=== PATIENT | male | born 1965 ===

== ENCOUNTER 2017-09-16 17:25 | Emergency (ER) | payer MEDICARE ==
[2017-09-16 17:36] VITALS: BP 141/93; PULSE 78; RESP 16; TEMP 97.6; O2SAT 99
--- NOTE | 2017-09-16 18:37 | ED PDOC ---
HPI: General Adult Time Seen by Provider: 09/16/17 17:53 Chief Complaint (Nursing): ENT Problem Chief Complaint (Provider): Left throat pain History Per: Patient History/Exam Limitations: no limitations Onset/Duration Of Symptoms: Days (x 1 week) Current Symptoms Are (Timing): Still Present Additional Complaint(s): 52 year old male presents to the ED complaining of 1 week history of foreign body sensation to left side of his throat. Denies any trauma to the area. Patient initially noticed it on a day where he had eaten toast with banana. Pain has been increasing since onset, and worsens with swallowing. Today he developed nausea and had more difficulty tolerating secretions. Otherwise he denies any associated fever, loss of voice, rhinorrhea, or cough. Patient also reports that it hurts to speak. PMD: Dr. Luis Littlejohn Past Medical History Reviewed: Historical Data, Nursing Documentation, Vital Signs Vital Signs: Last Vital Signs Temp 97.6 F 09/16/17 17:34 Pulse 78 09/16/17 17:34 Resp 16 09/16/17 17:34 BP 141/93 H 09/16/17 17:34 Pulse Ox 99 09/16/17 21:20 - Medical History PMH: Arthritis, HTN - Surgical History Other surgeries: Left knee surgery - Family History Family History: States: Hypertension - Social History Current smoker - smoking cessation education provided: No Alcohol: None - Immunization History Hx Tetanus Toxoid Vaccination: No Hx Influenza Vaccination: No Hx Pneumococcal Vaccination: No - Home Medications Home Medications: Ambulatory Orders Medication Instructions Recorded Albuterol HFA [Ventolin HFA 90 1 puff IH Q4 #1 puff 10/17/15 mcg/actuation (8 g)] Ibuprofen [Motrin] 1 tab PO TID PRN #30 tab 10/17/15 Spacer, Inhalation [Aerochamber] 1 inh IH QID #1 dev 10/17/15 predniSONE [Prednisone] 20 mg PO BID #10 tab 10/17/15 Azithromycin [Zithromax Z-Evin] 250 mg PO DAILY #1 packet 11/07/15 Promethazine DM [Phenergan DM Oral 5 ml PO Q6H PRN #100 dose 11/07/15 Syrup] Amoxicillin/Potassium Clav 2 tab PO BID #20 tablet 09/16/17 [Amox-Clav 250-125 mg Tablet] predniSONE [predniSONE Tab] 20 mg PO BID #8 tab 09/16/17 - Allergies Allergies/Adverse Reactions: Allergies Allergy/AdvReac Type Severity Reaction Status Date / Time No Known Allergies Allergy Verified 10/17/15 11:23 Review of Systems ROS Statement: Except As Marked, All Systems Reviewed And Found Negative (as per HPI otherwise negative) Constitutional: Positive for: Other (no loss of voice). Negative for: Fever, Chills ENT: Positive for: Throat Pain (left), Other (foreign body sensation to left side of throat, with pain on swallowing and difficulty tolerating secretions). Negative for: Nose Discharge Respiratory: Negative for: Cough Gastrointestinal: Positive for: Nausea Physical Exam - Reviewed Nursing Documentation Reviewed: Yes Vital Signs Reviewed: Yes - Laboratory Results Result Diagrams: 09/16/17 18:55 09/16/17 18:55 - ECG O2 Sat by Pulse Oximetry: 99 (RA) Pulse Ox Interpretation: Normal Medical Decision Making Medical Decision Making: Initial Impression: Left-sided throat pain Differential includes: foreign body, laryngitis, soft tissue abscess, or lymphadenitis. Time: 18:11 Initial Plan: * X-Ray of Neck Soft Tissue Time: 18:40 Soft Tissue Neck X-Ray is unremarkable, as viewed by me, with no obvious foreign body appreciated. CT scan and lab work ordered to assess for possible pharyngeal abscess. Patient Name: BEENA HUBER (Age): 1965 52 Gender: M Date of Exam: 09/16/2017 Referring Physician: Estephania Holley # of Images: [id number] Ordered As: CT NECK SOFT TISSUE W CONTRAST Page 1 of 2 EXAM: CT Neck With Intravenous Contrast EXAM DATE/TIME: 09/16/2017 6:40 PM CLINICAL HISTORY: 52 years old, male; Pain; Throat pain; Additional info: Left sided throat pain and dysphagia R/O abscess. Sent phy. Doc. TECHNIQUE: Axial computed tomography images of the neck with intravenous contrast. All CT scans at this facility use one or more dose reduction techniques, viz.: automated exposure control; ma/kV adjustment per patient size (including targeted exams where dose is matched to indication; i.e. head); or iterative reconstruction technique. Coronal and sagittal reformatted images were created and reviewed. CONTRAST: 80 mL of [id number] administered intravenously. COMPARISON: CR - NECK SOFT TISSUE 2017-09-16 18:27 FINDINGS: Brain: No acute abnormalities are seen in visualized portion of the brain. Sinuses: There is no acute sinusitis. There is mucoperiosteal thickening in the left maxillary sinus. Ears and mastoids: Middle ears and mastoids are unremarkable Orbits: Orbital contents are unremarkable. Tonsils and adenoids: Tonsils and adenoids are unremarkable. Deep facial spaces: Parapharyngeal spaces are symmetric. There are no facial masses. There is no retropharyngeal soft tissue swelling. Salivary glands: Parotid and submandibular glands are unremarkable. Airway: Airway is unremarkable Thyroid: Thyroid is unremarkable. Vascular: Vascular structures are unremarkable. Nodes: There is shotty cervical adenopathy Lung apices: Lung apices are clear. Bony structures: There are degenerative changes in the cervical spine. IMPRESSION: No abscess Thank you for allowing us to participate in the care of your patient. Dictated and Authenticated by: Irene Cárdenas MD 09/16/2017 9:11 PM Eastern Time ([place] & [place]) 21:35 Patient is medically stable for discharge home. Provided rx for antibiotic and prednisone. Counseling was provided and all questions were answered regarding diagnosis and need for follow up with ENT. There is agreement to discharge plan. Return if symptoms persist or worsen. Scribe Attestation: Documented by Leana Espinoza, acting as a scribe for Estephania Holley MD Provider Scribe Attestation: All medical record entries made by the Scribe were at my direction and personally dictated by me. I have reviewed the chart and agree that the record accurately reflects my personal performance of the history, physical exam, medical decision making, and the department course for this patient. I have also personally directed, reviewed, and agree with the discharge instructions and disposition. Disposition - Clinical Impression Clinical Impression: Throat pain - Patient ED Disposition Is Patient to be Admitted: No Counseled Patient/Family Regarding: Studies Performed, Diagnosis, Need For Followup - Disposition Referrals: Efren Greene MD [Staff Provider] - (LLAMA A LA OFICINA POR LA MANANA A HACER ABENA YANDY EN 2-3 DOVER A CHEQAR DE PAOLI) Disposition: Routine/Home Disposition Time: 21:35 Condition: STABLE Prescriptions: Amoxicillin/Potassium Clav [Amox-Clav 250-125 mg Tablet] 2 tab PO BID #20 tablet predniSONE [predniSONE Tab] 20 mg PO BID #8 tab Instructions: Pharyngitis (ED) Forms: [facility] (Divehi) Print Language: OCCITAN - POA Present On Arrival: None
[2017-09-16 19:00] LABS: BASO # 0.1 K/uL (0.0-0.2); EOS # 0.7 K/uL (0.0-0.7); EOS % 6.1 % (0.0-4.0); HEMOGLOBIN 14.7 g/dL (12.0-18.0); LYMPH # 3.9 K/uL (1.0-4.3); LYMPH % 32.4 % (20.0-40.0); MEAN CELL VOLUME 87.5 fl (80.0-94.0); MEAN CORPUSCULAR HEMOGLOBIN 29.6 pg (27.0-31.0); MEAN CORPUSCULAR HGB CONC 33.8 g/dL (33.0-37.0); MEAN PLATELET VOLUME 9.1 fl (7.2-11.7); MONO # 1.1 K/uL (0.0-0.8); MONO % 8.8 % (0.0-10.0); NEUT # 6.2 K/uL (1.8-7.0); NEUT % 51.7 % (50.0-75.0); NRBC % 0.2 % (0.0-0.0); RBC 4.96 Mil/uL (4.40-5.90); RED CELL DISTRIBUTION WIDTH 13.8 % (11.5-14.5)
[2017-09-16 19:13] LABS: ALB/GLOB RATIO 1.3 (1.0-2.1); ALBUMIN 4.6 g/dL (3.5-5.0); ALT/SGPT 93 U/L (21-72); AST/SGOT 42 U/L (17-59); BLOOD UREA NITROGEN 13 mg/dl (9-20); CALCIUM 9.8 mg/dL (8.4-10.2); GFR AFRICAN-AMERICAN > 60; GFR NON-AFRICAN AMERICAN > 60
[2017-09-16] MEDS ORDERED: Sodium Chloride 0.9% 50 ML IV ONE (19:57)
[2017-09-16] MEDS ORDERED: Iohexol 300 100 ML IJ ONE (19:57)
--- NOTE | 2017-09-16 21:11 | CT ---
EXAM: CT Neck With Intravenous Contrast EXAM DATE/TIME: 09/16/2017 6:40 PM CLINICAL HISTORY: 52 years old, male; Pain; Throat pain; Additional info: Left sided throat pain and dysphagia R/O abscess. Sent phy. Doc. TECHNIQUE: Axial computed tomography images of the neck with intravenous contrast. All CT scans at this facility use one or more dose reduction techniques, viz.: automated exposure control; ma/kV adjustment per patient size (including targeted exams where dose is matched to indication; i.e. head); or iterative reconstruction technique. Coronal and sagittal reformatted images were created and reviewed. CONTRAST: 80 mL of [id number] administered intravenously. COMPARISON: CR - NECK SOFT TISSUE 2017-09-16 18:27 FINDINGS: Brain: No acute abnormalities are seen in visualized portion of the brain. Sinuses: There is no acute sinusitis. There is mucoperiosteal thickening in the left maxillary sinus. Ears and mastoids: Middle ears and mastoids are unremarkable Orbits: Orbital contents are unremarkable. Tonsils and adenoids: Tonsils and adenoids are unremarkable. Deep facial spaces: Parapharyngeal spaces are symmetric. There are no facial masses. There is no retropharyngeal soft tissue swelling. Salivary glands: Parotid and submandibular glands are unremarkable. Airway: Airway is unremarkable Thyroid: Thyroid is unremarkable. Vascular: Vascular structures are unremarkable. Nodes: There is shotty cervical adenopathy Lung apices: Lung apices are clear. Bony structures: There are degenerative changes in the cervical spine. IMPRESSION: No abscess
--- NOTE | 2017-09-17 13:36 | RAD ---
PROCEDURE: Radiographs of the neck (soft tissue). HISTORY: LEFT sided foreign body sensation COMPARISON: None. TECHNIQUE: Frontal and Lateral Radiographs of the neck, optimized for soft tissue visualization. FINDINGS: SOFT TISSUES: Unremarkable. No radiopaque foreign body seen. CERVICAL SPINE: Grossly unremarkable. OTHER FINDINGS: None. IMPRESSION: Unremarkable radiographs of the soft tissues of the neck.
== END 2017-09-16 21:49 | disposition home or self-care (01) ==
LOC: H.ER 17:25
DX: R07.0 Pain in throat (principal); I10 Essential (primary) hypertension
CPT/HCPCS: 70360; 70491; 80053; 85025; 87040; 87070; 87430; 96374; 99284; J1100; Q9967

== ENCOUNTER 2017-12-17 06:08 | Inpatient (IN) | payer MEDICARE ==
[2017-12-12 13:23] VITALS: BMI 33.8
[2017-12-17 07:07] LABS: BASO # 0.1 K/uL (0.0-0.2); BASO % 0.8 % (0.0-2.0); EOS # 0.7 K/uL (0.0-0.7); EOS % 8.6 % (0.0-4.0); HEMOGLOBIN 14.8 g/dL (12.0-18.0); LYMPH # 3.1 K/uL (1.0-4.3); LYMPH % 37.3 % (20.0-40.0); MEAN CELL VOLUME 87.4 fl (80.0-94.0); MEAN CORPUSCULAR HEMOGLOBIN 29.9 pg (27.0-31.0); MEAN CORPUSCULAR HGB CONC 34.2 g/dL (33.0-37.0); MEAN PLATELET VOLUME 9.3 fl (7.2-11.7); MONO # 0.9 K/uL (0.0-0.8); MONO % 10.7 % (0.0-10.0); NEUT # 3.6 K/uL (1.8-7.0); NEUT % 42.6 % (50.0-75.0); RBC 4.97 Mil/uL (4.40-5.90); RED CELL DISTRIBUTION WIDTH 14.1 % (11.5-14.5); WHITE BLOOD COUNT 8.4 K/uL (4.8-10.8)
--- NOTE | 2017-12-17 07:13 | CP.PCM.CON ---
History of Present Illness - History of Present Illness History of Present Illness: Patient is a 52 y/o male with PMH of OA and HTN, who presents with complaints of lower back pain. 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 He describes a heavy glass frame falling onto him in 2007, causing neck and lower back pain. He notes that in 2010 the pain became progressive and sought treatment. Over the past few months, the pain has been more consistent and severe hindering his daily activities, especially sitting and standing. He has failed conservative management with PT and oral medications, as well as epidural injections. The pain is sharp and stabbing in quality and predominantly located at the left side. The pain radiates to the left lower extremity without numbness or tingling. He denies bowel/bladder dysfunction or saddle paresthesias. He aslo denies CP/SOB/N/V/D/fever/WILSON/ dysuria/melena. Review of Systems - Review of Systems All systems: reviewed and no additional remarkable complaints except Review of Systems: as per HPI Past Patient History - Past Medical History & Family History Past Medical History?: Yes Past Family History: Reviewed and not pertinent - Past Social History Smoking Status: Never Smoked Alcohol: None - CARDIAC Hx Cardiac Disorders: Yes Hx Hypertension: Yes - PULMONARY Hx Respiratory Disorders: No - NEUROLOGICAL Hx Neurological Disorder: No - HEENT Hx HEENT Problems: No Other/Comment: HX: VOCAL CORD LESION; DYSPHAGIA; HOARSNESS - RENAL Hx Chronic Kidney Disease: No - ENDOCRINE/METABOLIC Hx Endocrine Disorders: No - HEMATOLOGICAL/ONCOLOGICAL Hx Blood Disorders: No Hx Blood Transfusions: No - INTEGUMENTARY Hx Dermatological Problems: No - MUSCULOSKELETAL/RHEUMATOLOGICAL Hx Musculoskeletal Disorders: Yes Hx Arthritis: Yes (knees left) Hx Falls: No Other/Comment: HX: LEFT KNEE "TEAR" - GASTROINTESTINAL Hx Gastrointestinal Disorders: No Other/Comment: HX: DYSPHAGIA - GENITOURINARY/GYNECOLOGICAL Hx Genitourinary Disorders: No - PSYCHIATRIC Hx Emotional Abuse: No Hx Physical Abuse: No - SURGICAL HISTORY Hx Surgeries: Yes Hx Arthroscopy: Yes (left knee arthroscopy) Other/Comment: THROAT BX - ANESTHESIA Hx Anesthesia: Yes Hx Anesthesia Reactions: No Hx Malignant Hyperthermia: No Has any member of the family had a problem w/ anesthesia?: No Meds Allergies/Adverse Reactions: Allergies Allergy/AdvReac Type Severity Reaction Status Date / Time No Known Allergies Allergy Verified 12/17/17 07:12 Physical Exam - Constitutional Appears: No Acute Distress - Head Exam Head Exam: ATRAUMATIC, NORMOCEPHALIC - Eye Exam Eye Exam: EOMI, Normal appearance, PERRL - ENT Exam ENT Exam: Mucous Membranes Moist - Respiratory Exam Respiratory Exam: Clear to Auscultation Bilateral, NORMAL BREATHING PATTERN - Cardiovascular Exam Cardiovascular Exam: REGULAR RHYTHM - GI/Abdominal Exam GI & Abdominal Exam: Normal Bowel Sounds, Soft - Extremities Exam Additional comments: L knee swelling and tenderness - Back Exam Additional comments: Lumbar: midline tenderness, L paraspinal tenderness sensation intact SP/DP/TN motor intact EHL/FHl/TA/G distal pulses intact + L SLR neg babinski, neg homans - Neurological Exam Neurological exam: Alert, CN II-XII Intact, Oriented x3 - Psychiatric Exam Psychiatric exam: Normal Affect, Normal Mood - Skin Skin Exam: Normal Color, Warm Results - Vital Signs Recent Vital Signs: Last Vital Signs Temp 97.8 F 12/17/17 06:56 Pulse 87 12/17/17 07:04 Resp 18 12/17/17 06:56 BP 125/56 L 12/17/17 06:56 Pulse Ox 96 12/17/17 06:56 - Labs Result Diagrams: 12/17/17 06:45 Labs: Laboratory Results - last 24 hr 12/17/17 06:45 WBC 8.4 RBC 4.97 Hgb 14.8 Hct 43.4 MCV 87.4 MCH 29.9 MCHC 34.2 RDW 14.1 Plt Count 160 MPV 9.3 Neut % (Auto) 42.6 L Lymph % (Auto) 37.3 [place] % (Auto) 10.7 H Eos % (Auto) 8.6 H Baso % (Auto) 0.8 Neut # (Auto) 3.6 Lymph # (Auto) 3.1 [place] # (Auto) 0.9 H Eos # (Auto) 0.7 Baso # (Auto) 0.1 Assessment & Plan (1) Herniated nucleus pulposus, lumbar Assessment and Plan: -Dr. Calderon proposes lumbar laminotomy and fusion at levels L2-4, possible L1-2 -Risks/benefits of the procedure were explained to the patient in detail. The patient understands and agrees to proceed -above d/w Dr. Calderon in agreement Status: Acute - Date & Time Date: 12/17/17 Time: 07:13 Radiology Interpretation - Venetian Blind Maker Venetian Blind Maker:: Radiologist - Study type Study type:: MRI - Body Region Body Region:: Back - Notes: Notes:: Accession No. : [id number] Patient Name / ID : MAYO Baer / [id number] Exam Date : 10/06/2017 08:47:44 ( Approved ) Study Comment : Sex / Age : M / 52Y Creator : Luis Antonio Maria MD Dictator : Luis Antonio Maria MD Rubber Stamp Dies Inspector : Liquid Chlorine Operator : Luis Antonio Maria MD Approver2 : Report Date : 10/06/2017 12:41:52 My Comment : PROCEDURE: MR LUMBAR SPINE WITHOUT CONTRAST HISTORY: LOWER BACK/NECK PAIN COMPARISON: None available. TECHNIQUE: Multiecho multiplanar sequences were performed through the lumbar spine without the use of intravenous contrast. FINDINGS: Lumbar curvature is mildly straightened. There is a minimal spondylolisthesis at L2-3 with L2 posterior to L3 by 3-4 mm. This appears to be on the basis of facet joint degenerative change rather than spondylolysis. Endplate degenerative signal changes seen surrounding the L3-4 and L5-S1 disc interspace is mildly. No suspicious small marrow signal changes appreciated throughout the lumbar spine. Diffuse disc desiccation is appreciated with mild disc height loss identified follow up from L1 down to upper endplate L5. The L5-S1 intervertebral disc space is normal in height. An annular tear is seen anterolaterally toward the left at L1-2. The L Conus medullaris appears normal in signal terminating at the L 1 inferior endplate with prevertebral and paraspinal soft tissues unremarkable. Incidental note is made of an apparent cyst at the left kidney history better characterized by ultrasound or CT. T12-L1: No disc herniation, spinal canal stenosis or neural foraminal narrowing. L1-2: No disc herniation, spinal canal stenosis or neural foraminal narrowing. Minimal disc bulge is appreciated generalized. L2-3: A generalized disc osteophyte complex is appreciated flattening the ventral thecal sac and combining with mild facet joint degenerative change resulting in mild central canal stenosis concentrated at the lateral recesses. Borderline bilateral neural foraminal stenosis. No disc herniation. L3-4: A large, generalized disc bulge is appreciated with a tiny left lateral disc protrusion stenosing left lateral recess. [id number]-[id number] central canal stenosis appreciated with mild bilateral facet arthropathy contributing to this appearance. Mild, degenerative bilateral neural foraminal stenosis is identified. L4-5: An irregular right paracentral disc protrusion is appreciated with a lateralized component and a generalized moderate disc bulge combined with facet joint arthropathy resulting in a mild central canal stenosis. The right lateral recess is obliterated. Moderate degenerative neural foraminal stenosis appreciated bilaterally. L5-S1: A central disc protrusion is appreciated without distorting the ventral thecal sac. Facet degenerative change appears moderate with minimal generalized disc bulging appreciated. A borderline central canal and bilateral neural foraminal stenoses are appreciated. OTHER FINDINGS: None. IMPRESSION: 1. [id number] central canal stenosis identified L3-4 due to a large generalized disc bulge, facet joint arthropathy and a tiny left lateral disc protrusion stenosing left lateral recess in particular. 2. Mild L4-5 predominantly degenerative central canal stenosis with a limited component from a small right paracentral disc protrusion obliterating right lateral recess. 3. Borderline degenerative central canal stenosis at L5-S1 with a small central disc protrusion. 4. Variable limited bilateral neural foraminal stenoses appear degenerative.
[2017-12-17] MEDS ORDERED: Lidocaine 2% Inj (20ml) ONE (07:27)
[2017-12-17] MEDS ORDERED: Thrombin Topical 5,000 Int Units Spray Kit ONE ×2 (07:28→08:55)
[2017-12-17] MEDS ORDERED: Absorbable Gelatin Sponge Size 100 ONE (07:28)
[2017-12-17] MEDS ORDERED: Bacitracin Ointment 30 GM TUBE ONE (07:28)
[2017-12-17] MEDS ORDERED: Succinylcholine 200 mg/10 ml Inj IV ONE (07:34)
[2017-12-17] MEDS ORDERED: Propofol 10 mg/ml Inj (20 ML) ONE (07:34)
[2017-12-17] MEDS ORDERED: Rocuronium 10 mg/ml (5 ml) ONE ×2 (07:34→08:02)
[2017-12-17] MEDS ORDERED: Midazolam 2 MG/2 ML VIAL ONE (07:34)
[2017-12-17] MEDS ORDERED: Lidocaine 4% (Laryng-O-Jet) Kit MM ONE (07:34)
[2017-12-17] MEDS ORDERED: Phenylephrine 10 mg/ml Inj ONE (07:39)
[2017-12-17] MEDS ORDERED: ePHEDrine 50 mg/ml Inj ONE (07:39)
[2017-12-17] MEDS ORDERED: Lactated Ringer's 1,000 ML IV ONE ×2 (07:45→09:30)
[2017-12-17] MEDS ORDERED: Lidocaine 2% PF (10 ml) Amp INJ ONE (08:00)
[2017-12-17] MEDS ORDERED: HEMOSTATIC MATRIX 10 ML DIS.NEEDLE TOP ONE ×2 (08:20)
[2017-12-17] MEDS ORDERED: Neostigmine 1:1000 (1 mg/ml) Inj ONE (09:02)
[2017-12-17] MEDS ORDERED: Absorbable Gelatin Sponge Size 100 TP ONE (09:05)
[2017-12-17] MEDS ORDERED: Thrombin Topical 5,000 Int Units Spray Kit TOP ONE (09:05)
[2017-12-17] MEDS ORDERED: Bupivacaine HCl 0.25% PF (30 ml) Inj ONE (09:25)
[2017-12-17] MEDS ORDERED: Bupivacaine HCl 0.25% PF (30 ml) Inj IJ ONE ×2 (09:35→09:41)
[2017-12-17] MEDS ORDERED: Morphine 4 MG/ML VIAL IVP PRN (09:59)
[2017-12-17] MEDS ORDERED: HYDROmorphone 0.5 mg/0.5 ml ISec IVP PRN (10:10)
--- NOTE | 2017-12-17 10:11 | PCM.SURG1 ---
Surgeon's Initial Post Op Note - Surgeon's Notes Surgeon: Atilio Calderon MD Studio Manager: Deven See PA-C Type of Anesthesia: General Endo Anesthesia Administered By: Danie NICHOLS Pre-Operative Diagnosis: Lumbar spondylosis Operative Findings: L2-L4 spondylosis and herniated disc Post-Operative Diagnosis: as above Operation Performed: Left L2-L4 laminotomy and posterior instrumental fusion Specimen/Specimens Removed: none Estimated Blood Loss: EBL {In ML}: 10 Blood Products Given: N/A Drains Used: Chaitanya Cole (x 2) Post-Op Condition: Good Date of Surgery/Procedure: 12/17/17 Time of Surgery/Procedure: 08:00
--- NOTE | 2017-12-17 10:36 | OP ---
PROCEDURE DATE: 12/17/2017 PREOPERATIVE DIAGNOSIS: Lumbar spondylosis. POSTOPERATIVE DIAGNOSIS: Lumbar spondylosis. PROCEDURE: Left L2-3, L3-4 hemilaminotomy, medial facetectomy, decompression, L2 to L4 pedicle screw fixation and instrumentation using spinal elements, and L2 to L4 posterolateral fusion. SURGEON: Atilio Calderon MD ACTUARIAL MATHEMATICIAN: Deven See PA-C who stayed throughout the case from the beginning to the end and helped me perform the surgery. DESCRIPTION OF PROCEDURE: The patient was brought to the operating room, anesthetized with general endotracheal anesthesia, placed in a prone position on the Chaitanya table. Care was taken to protect all pressure points. Back of the lumbar area thoroughly prepped and draped in sterile manner after marking the skin incisions for lumbar laminectomy and fusion. After prepping and draping the area, the skin has been incised. Bleeding skin has been controlled with bipolar fleet maintenance manager. After using a Bovie fleet maintenance manager, paraspinal muscles have been detached from the attachments of spinous process and lamina of L2, 3, and 4 bilaterally. Deep retractors have been applied. Identification of levels has been done with the help of fluoroscopy by using a traditional landmark, point of entry has been noted for the pedicle screws at L2, 3, and 4. Initially K-wire, later a drill has been used in order to enter the pedicles. Polyaxial titanium screws of spinal elements have been placed. Titanium rods have been placed and cap nuts have been used in order to secure them. Under microscopic examination on the left side, L2-3 and L3-4 hemilaminotomy, medial facetectomy along with removal of the ligamentum flavum has been performed, decompressing this area. After later aspect of the facet joint and transverse process decorticated and demineralized bone placed in the area achieving a posterolateral fusion. After that, hemostasis was best achieved. Two drains have been placed, brought out through a separate stab neck skin incision. Muscles and fascia were closed with 1 Vicryl, subcutaneous with 3 Vicryl, skin has been intradermal 3 Vicryl stitches. The patient tolerated the procedure, after procedure, mobilized to the recovery room in stabilized condition. Atilio Calderon MD
--- NOTE | 2017-12-17 13:26 | CP.PCM.HP ---
History of Present Illness - History of Present Illness History of Present Illness: 52 yo ,m, PMhx/o HTN, OA, chronic lower back pain s/p work accident 2008, c/o worsening of lower back pain for he last 3 months, almost everyday , radiated to left leg. He denies numbness, weakness, gait imbalance, urinary incontinence or fecal incontinence, chest pain, SOB, f,cough, n,v,d. Patient has failed conservative management and is agree to have surgical intervention PMHX: HTN, OA, chronic lower back pain s/p work accident 2007 Allergies: NKDA Meds: Metoprolol 50 mg daily, Diovan 160 mg daily PShx: Denies ETOH,rect drugs, cig Present on Admission - Present on Admission Any Indicators Present on Admission: No History of DVT/PE: No History of Uncontrolled Diabetes: No Urinary Catheter: No Decubitus Ulcer Present: No Review of Systems - Review of Systems All systems: reviewed and no additional remarkable complaints except - Musculoskeletal Musculoskeletal: Back Pain Past Patient History - Past Medical History & Family History Past Medical History?: Yes Past Family History: Reviewed and not pertinent - Past Social History Smoking Status: Never Smoked Alcohol: None - CARDIAC Hx Cardiac Disorders: Yes Hx Hypertension: Yes - PULMONARY Hx Respiratory Disorders: No - NEUROLOGICAL Hx Neurological Disorder: No - HEENT Hx HEENT Problems: No Other/Comment: HX: VOCAL CORD LESION; DYSPHAGIA; HOARSNESS - RENAL Hx Chronic Kidney Disease: No - ENDOCRINE/METABOLIC Hx Endocrine Disorders: No - HEMATOLOGICAL/ONCOLOGICAL Hx Blood Disorders: No Hx Blood Transfusions: No - INTEGUMENTARY Hx Dermatological Problems: No - MUSCULOSKELETAL/RHEUMATOLOGICAL Hx Musculoskeletal Disorders: Yes Hx Arthritis: Yes (knees left) Hx Falls: No Other/Comment: HX: LEFT KNEE "TEAR" - GASTROINTESTINAL Hx Gastrointestinal Disorders: No Other/Comment: HX: DYSPHAGIA - GENITOURINARY/GYNECOLOGICAL Hx Genitourinary Disorders: No - PSYCHIATRIC Hx Emotional Abuse: No Hx Physical Abuse: No - SURGICAL HISTORY Hx Surgeries: Yes Hx Arthroscopy: Yes (left knee arthroscopy) Other/Comment: THROAT BX - ANESTHESIA Hx Anesthesia: Yes Hx Anesthesia Reactions: No Hx Malignant Hyperthermia: No Has any member of the family had a problem w/ anesthesia?: No Meds Allergies/Adverse Reactions: Allergies Allergy/AdvReac Type Severity Reaction Status Date / Time No Known Allergies Allergy Verified 12/17/17 07:12 Physical Exam - Constitutional Appears: Non-toxic, No Acute Distress - Head Exam Head Exam: ATRAUMATIC, NORMOCEPHALIC - Eye Exam Eye Exam: Normal appearance - ENT Exam ENT Exam: Mucous Membranes Moist - Neck Exam Neck exam: Positive for: Normal Inspection - Respiratory Exam Respiratory Exam: Clear to Auscultation Bilateral. absent: Rales, Rhonchi, Wheezes - Cardiovascular Exam Cardiovascular Exam: REGULAR RHYTHM, +S1, +S2 - GI/Abdominal Exam GI & Abdominal Exam: Normal Bowel Sounds, Soft. absent: Guarding, Rebound, Tenderness - Extremities Exam Extremities exam: Positive for: normal inspection. Negative for: pedal edema - Back Exam Additional comments: Dressing on back spine, b/l ABIGAIL with hematic drainage. dresing C/D/I - Neurological Exam Neurological exam: Alert, Oriented x3 - Psychiatric Exam Psychiatric exam: Normal Affect, Normal Mood - Skin Skin Exam: Intact Results - Vital Signs Recent Vital Signs: Last Vital Signs Temp 97.9 F 12/17/17 12:24 Pulse 99 H 12/17/17 12:24 Resp 18 12/17/17 12:24 BP 106/75 12/17/17 12:24 Pulse Ox 94 L 12/17/17 12:24 - Labs Result Diagrams: 12/17/17 06:45 Labs: Laboratory Results - last 24 hr 12/17/17 12/17/17 12/17/17 06:45 06:45 07:45 WBC 8.4 RBC 4.97 Hgb 14.8 Hct 43.4 MCV 87.4 MCH 29.9 MCHC 34.2 RDW 14.1 Plt Count 160 MPV 9.3 Neut % (Auto) 42.6 L Lymph % (Auto) 37.3 Vance % (Auto) 10.7 H Eos % (Auto) 8.6 H Baso % (Auto) 0.8 Neut # (Auto) 3.6 Lymph # (Auto) 3.1 Vance # (Auto) 0.9 H Eos # (Auto) 0.7 Baso # (Auto) 0.1 Blood Type O POSITIVE Blood Type Confirm O POSITIVE Antibody Screen Negative BBK History Checked No verified bt Assessment & Plan - Assessment and Plan (Free Text) Plan: Assessment/Plan 1)Lower back pain secondary to lumbar disc herniation and lumbar stenosis CT Lumbar spine: lumbar disc herniation , central canal stenosis Ortho consult appreciated: for OR today -s/p left L2-L4 laminotomy and posterior instrumental fusion day 0 -c/w If fluids, pain management -advance as tolerated 2) HTN -c/w home medications 4) DVT Prophylaxis -SCD
[2017-12-17] MEDS: Lactated Ringer's 1,000 ML IV SCH (13:48)
[2017-12-17] MEDS: ceFAZolin 2 GM in Sodium Chloride 0.9% 100 ML IVPB SCH (16:16)
[2017-12-17] MEDS: Oxycodone/Acetaminophen 5/325 mg Tab PO PRN ×2 (16:20→21:18)
--- NOTE | 2017-12-17 16:28 | RAD ---
PROCEDURE: Fluoroscopy HISTORY: PLIF COMPARISON: None TECHNIQUE: Standard protocol for this study/examination. FINDINGS: Submitted images from the current procedure: 1.0 IMPRESSION: Total fluoroscopic time (continuous mode) utilized during the procedure 36.0 seconds. Total exam DLP: (mGy) 11.91
[2017-12-18] MEDS: ceFAZolin 2 GM in Sodium Chloride 0.9% 100 ML IVPB SCH ×3 (00:09→16:33)
[2017-12-18] MEDS: Lactated Ringer's 1,000 ML IV SCH ×3 (00:12→16:34)
[2017-12-18 06:03] LABS: HEMOGLOBIN 12.2 g/dL (12.0-18.0); MEAN CELL VOLUME 87.4 fl (80.0-94.0); MEAN CORPUSCULAR HEMOGLOBIN 29.3 pg (27.0-31.0); MEAN CORPUSCULAR HGB CONC 33.6 g/dL (33.0-37.0); RBC 4.15 Mil/uL (4.40-5.90); RED CELL DISTRIBUTION WIDTH 14.2 % (11.5-14.5)
[2017-12-18 06:30] LABS: BLOOD UREA NITROGEN 13 mg/dl (9-20); CALCIUM 9.2 mg/dL (8.4-10.2); GFR AFRICAN-AMERICAN > 60; GFR NON-AFRICAN AMERICAN > 60
[2017-12-18] MEDS: Oxycodone/Acetaminophen 5/325 mg Tab PO PRN ×3 (08:26→23:24)
--- NOTE | 2017-12-18 11:29 | CP.PCM.PN ---
Subjective - Date & Time of Evaluation Date of Evaluation: 12/18/17 Time of Evaluation: 11:28 - Subjective Subjective: Patient seen and examined at bedside comfortable. Pain is well controlled. Has been OOB to bathroom with minimal difficulty. No acute events overnight. Objective - Vital Signs/Intake and Output Vital Signs (last 24 hours): Temp Pulse Resp BP Pulse Ox 98.6 F 115 H 20 137/86 115 H 12/18/17 08:21 12/18/17 08:21 12/18/17 08:21 12/18/17 08:21 12/18/17 08:21 Intake and Output: 12/18/17 12/18/17 06:59 18:59 Intake Total 1700 100 Output Total 710 Balance 990 100 - Medications Medications: Current Medications Acetaminophen (Tylenol 325mg Tab) 650 mg PO Q4 PRN PRN Reason: Fever 101 degrees fahrenheit Docusate Sodium (Colace) 100 mg PO BID [facility] Last Admin: 12/18/17 08:17 Dose: 100 mg Cefazolin Sodium 2 gm/ Sodium (Chloride) 100 mls @ 100 mls/hr IVPB Q8 [facility] PRN Reason: Protocol Stop: 12/19/17 12:59 Last Admin: 12/18/17 08:16 Dose: 100 mls/hr Lactated Ringer's (Lactated Ringer's) 1,000 mls @ 100 mls/hr IV .Q10H [facility] Last Admin: 12/18/17 06:27 Dose: Not Given Morphine Sulfate (Morphine) 2 mg IVP Q4 PRN PRN Reason: Pain, severe (8-10) Last Admin: 12/17/17 13:44 Dose: 2 mg Ondansetron HCl (Zofran Inj) 4 mg IVP ONCE PRN PRN Reason: Nausea/Vomiting Oxycodone/Acetaminophen (Percocet 5/325 Mg Tab) 2 tab PO Q4 PRN PRN Reason: Pain, moderate (4-7) Stop: 12/20/17 10:00 Last Admin: 12/18/17 08:26 Dose: 2 tab - Labs Labs: 12/18/17 04:30 12/18/17 04:30 - GI/Abdominal Exam Additional comments: Lumbar: Dressings with mild bloody drainage inferiorly and about drain sites, mild swelling, mild tenderness ABIGAIL drain intact with mild bloody drainage gross NVI distally CN intact neg babinski Assessment and Plan (1) Herniated nucleus pulposus, lumbar Assessment & Plan: POD#1 s/p L2-L4 lumbar laminotomy with instrumental fusion -pain control -PT/OT WBAT -keep drains in, monitor output, possibly remove halina AM -cont IV abx until drains removed -abd binder for comfort -d/c planning -above d/w Dr. Calderon in agreement Status: Acute
--- NOTE | 2017-12-18 17:07 | CP.PCM.PN ---
Subjective - Date & Time of Evaluation Date of Evaluation: 12/18/17 Time of Evaluation: 07:15 - Subjective Subjective: Patient seen and examined bedside with Dr Littlejohn. patient reports feeling better , AAO able to ambulated. PT evaluated patient. no overnight events. toleratieng diet. denies fever, SOB, chest pain, dysuria, Joce drainage in place Objective - Vital Signs/Intake and Output Vital Signs (last 24 hours): Temp Pulse Resp BP Pulse Ox 100.1 F H 114 H 17 118/77 97 12/18/17 16:14 12/18/17 16:14 12/18/17 16:14 12/18/17 16:14 12/18/17 16:14 Intake and Output: 12/18/17 12/18/17 06:59 18:59 Intake Total 1700 2600 Output Total 710 50 Balance 990 2550 - Medications Medications: Current Medications Acetaminophen (Tylenol 325mg Tab) 650 mg PO Q4 PRN PRN Reason: Fever 101 degrees fahrenheit Docusate Sodium (Colace) 100 mg PO BID [facility] Last Admin: 12/18/17 16:34 Dose: 100 mg Lactated Ringer's (Lactated Ringer's) 1,000 mls @ 100 mls/hr IV .Q10H [facility] Last Admin: 12/18/17 16:34 Dose: 100 mls/hr Morphine Sulfate (Morphine) 2 mg IVP Q4 PRN PRN Reason: Pain, severe (8-10) Last Admin: 12/17/17 13:44 Dose: 2 mg Ondansetron HCl (Zofran Inj) 4 mg IVP ONCE PRN PRN Reason: Nausea/Vomiting Oxycodone/Acetaminophen (Percocet 5/325 Mg Tab) 2 tab PO Q4 PRN PRN Reason: Pain, moderate (4-7) Stop: 12/20/17 10:00 Last Admin: 12/18/17 14:21 Dose: 2 tab - Labs Labs: 12/18/17 04:30 12/18/17 04:30 - Constitutional Appears: Non-toxic, No Acute Distress - Head Exam Head Exam: ATRAUMATIC, NORMOCEPHALIC - Eye Exam Eye Exam: Normal appearance - ENT Exam ENT Exam: Mucous Membranes Moist - Neck Exam Neck Exam: Normal Inspection - Respiratory Exam Respiratory Exam: Clear to Ausculation Bilateral. absent: Rales, Rhonchi, Wheezes - Cardiovascular Exam Cardiovascular Exam: REGULAR RHYTHM, +S1, +S2 - GI/Abdominal Exam GI & Abdominal Exam: Soft, Normal Bowel Sounds. absent: Tenderness - Extremities Exam Extremities Exam: Normal Inspection. absent: Pedal Edema - Back Exam Additional comments: dressing C/D/I. JOCE drainage b/l hematic aprox 50 ml - Neurological Exam Neurological Exam: Alert, Awake Neuro motor strength exam: Left Upper Extremity: 5, Right Upper Extremity: 5, Left Lower Extremity: 5, Right Lower Extremity: 5 - Psychiatric Exam Psychiatric exam: Normal Affect, Normal Mood - Skin Skin Exam: Intact Assessment and Plan - Assessment and Plan (Free Text) Plan: Assessment/Plan 1)Lower back pain secondary to lumbar disc herniation and lumbar stenosis CT Lumbar spine: lumbar disc herniation , central canal stenosis Ortho consult appreciated: -s/p left L2-L4 laminotomy and posterior instrumental fusion day 1 -c/w If fluids, pain management -advance as tolerated 2) HTN -c/w home medications 3) DVT Prophylaxis -SCD
[2017-12-19] MEDS: ceFAZolin 2 GM in Sodium Chloride 0.9% 100 ML IVPB SCH ×3 (00:22→17:40)
[2017-12-19 06:41] LABS: HEMOGLOBIN 11.8 g/dL (12.0-18.0); MEAN CORPUSCULAR HGB CONC 34.5 g/dL (33.0-37.0); RBC 3.95 Mil/uL (4.40-5.90); RED CELL DISTRIBUTION WIDTH 13.9 % (11.5-14.5); WHITE BLOOD COUNT 12.7 K/uL (4.8-10.8)
[2017-12-19 07:02] LABS: BLOOD UREA NITROGEN 10 mg/dl (9-20); CALCIUM 9.2 mg/dL (8.4-10.2); GFR AFRICAN-AMERICAN > 60; GFR NON-AFRICAN AMERICAN > 60
[2017-12-19] MEDS: Oxycodone/Acetaminophen 5/325 mg Tab PO PRN ×3 (08:10→21:46)
--- NOTE | 2017-12-19 09:22 | RAD ---
HISTORY: fever COMPARISON: No prior. TECHNIQUE: Chest PA and lateral FINDINGS: LUNGS: Limited patchy atelectasis or infiltrate is seen at the right base medially with none on the left. Inspiratory volume is limited. Linear atelectasis or fibrosis seen at the mid left lung zone laterally and medial left base. PLEURA: No significant pleural effusion identified. No pneumothorax apparent. CARDIOVASCULAR: Normal. OSSEOUS STRUCTURES: No significant abnormalities. VISUALIZED UPPER ABDOMEN: Normal. OTHER FINDINGS: None. IMPRESSION: Limited infiltrate or atelectasis medial right base with linear atelectasis or fibrosis at the mid to inferior left lung zones.
--- NOTE | 2017-12-19 11:51 | CP.PCM.PN ---
Subjective - Date & Time of Evaluation Date of Evaluation: 12/19/17 Time of Evaluation: 11:48 - Subjective Subjective: Patient states pain is improving. He denies CP/SOB/cough/dizziness/dysuria/ numbness/tingling. Objective - Vital Signs/Intake and Output Vital Signs (last 24 hours): Temp Pulse Resp BP Pulse Ox 101.3 F H 110 H 18 119/74 95 12/19/17 08:06 12/19/17 09:00 12/19/17 08:06 12/19/17 08:06 12/19/17 08:06 Intake and Output: 12/19/17 12/19/17 06:59 18:59 Intake Total 1500 Output Total 680 Balance 820 - Medications Medications: Current Medications Acetaminophen (Tylenol 325mg Tab) 650 mg PO Q4 PRN PRN Reason: Fever 101 degrees fahrenheit Last Admin: 12/18/17 20:09 Dose: 650 mg Docusate Sodium (Colace) 100 mg PO BID [facility] Last Admin: 12/19/17 08:12 Dose: 100 mg Lactated Ringer's (Lactated Ringer's) 1,000 mls @ 100 mls/hr IV .Q10H [facility] Last Admin: 12/18/17 16:34 Dose: 100 mls/hr Cefazolin Sodium 2 gm/ Sodium (Chloride) 100 mls @ 100 mls/hr IVPB Q8 [facility] PRN Reason: Protocol Last Admin: 12/19/17 00:22 Dose: 100 mls/hr Morphine Sulfate (Morphine) 2 mg IVP Q4 PRN PRN Reason: Pain, severe (8-10) Last Admin: 12/17/17 13:44 Dose: 2 mg Ondansetron HCl (Zofran Inj) 4 mg IVP ONCE PRN PRN Reason: Nausea/Vomiting Oxycodone/Acetaminophen (Percocet 5/325 Mg Tab) 2 tab PO Q4 PRN PRN Reason: Pain, moderate (4-7) Stop: 12/20/17 10:00 Last Admin: 12/19/17 08:10 Dose: 2 tab - Labs Labs: 12/19/17 05:30 12/19/17 05:30 - Back Exam Additional comments: ABIGAIL 50/80cc, left intact mod sang drainage on dressing, no erythema noted +ROM ankle/toes, sensation intact BLE, good bed mobility calves soft NT neghomans Assessment and Plan (1) Lumbar spondylosis Assessment & Plan: POD#[address] Calderon will leave drains, plan for d/c tomorrow if outpt decreased PT/OT VTE proph tmax 101.3, CXR shows atelectasis, encourage IS and OOB, wbc downtrending today c/o constipation, dulcolax added d/w Dr. Calderon, agrees with above Status: Acute
[2017-12-19] MEDS ORDERED: Bisacodyl 5mg EC Tab PO ONE (11:52)
--- NOTE | 2017-12-19 13:12 | CP.PCM.PN ---
Subjective - Date & Time of Evaluation Date of Evaluation: 12/19/17 Time of Evaluation: 07:30 - Subjective Subjective: Patient seen and examined bedside with Dr Littlejohn. Patient reports feeling better, participating in PT. patient febrile in the morning 101.3. no overnight events. denies chest pain, SOB, cough. B/L ABIGAIL with serohematic drainage. PAtient on Abx cefazolin, febrile possible dc tomorrow Objective - Vital Signs/Intake and Output Vital Signs (last 24 hours): Temp Pulse Resp BP Pulse Ox 99 F 108 H 18 113/72 95 12/19/17 11:58 12/19/17 11:58 12/19/17 11:58 12/19/17 11:58 12/19/17 11:58 Intake and Output: 12/19/17 12/19/17 06:59 18:59 Intake Total 1500 Output Total 680 Balance 820 - Medications Medications: Current Medications Acetaminophen (Tylenol 325mg Tab) 650 mg PO Q4 PRN PRN Reason: Fever 101 degrees fahrenheit Last Admin: 12/18/17 20:09 Dose: 650 mg Docusate Sodium (Colace) 100 mg PO BID [facility] Last Admin: 12/19/17 08:12 Dose: 100 mg Lactated Ringer's (Lactated Ringer's) 1,000 mls @ 100 mls/hr IV .Q10H [facility] Last Admin: 12/18/17 16:34 Dose: 100 mls/hr Cefazolin Sodium 2 gm/ Sodium (Chloride) 100 mls @ 100 mls/hr IVPB Q8 [facility] PRN Reason: Protocol Last Admin: 12/19/17 10:00 Dose: 100 mls/hr Morphine Sulfate (Morphine) 2 mg IVP Q4 PRN PRN Reason: Pain, severe (8-10) Last Admin: 12/17/17 13:44 Dose: 2 mg Ondansetron HCl (Zofran Inj) 4 mg IVP ONCE PRN PRN Reason: Nausea/Vomiting Oxycodone/Acetaminophen (Percocet 5/325 Mg Tab) 2 tab PO Q4 PRN PRN Reason: Pain, moderate (4-7) Stop: 12/20/17 10:00 Last Admin: 12/19/17 08:10 Dose: 2 tab - Labs Labs: 12/19/17 05:30 12/19/17 05:30 - Constitutional Appears: Non-toxic, No Acute Distress - Head Exam Head Exam: ATRAUMATIC, NORMOCEPHALIC - Eye Exam Eye Exam: Normal appearance - ENT Exam ENT Exam: Mucous Membranes Moist - Neck Exam Neck Exam: Normal Inspection - Respiratory Exam Respiratory Exam: Clear to Ausculation Bilateral. absent: Rales, Rhonchi, Wheezes - Cardiovascular Exam Cardiovascular Exam: REGULAR RHYTHM, +S1, +S2 - GI/Abdominal Exam GI & Abdominal Exam: Soft, Normal Bowel Sounds. absent: Tenderness - Extremities Exam Extremities Exam: Normal Inspection. absent: Pedal Edema - Back Exam Additional comments: dressing over lower back C/D/I with b/l ABIGAIL with serohematic drainage - Neurological Exam Neurological Exam: Alert, Awake - Psychiatric Exam Psychiatric exam: Normal Affect, Normal Mood - Skin Skin Exam: Normal Color Assessment and Plan - Assessment and Plan (Free Text) Plan: Assessment/Plan 1)Lower back pain secondary to lumbar disc herniation and lumbar stenosis CT Lumbar spine: lumbar disc herniation , central canal stenosis Ortho consult appreciated: -s/p left L2-L4 laminotomy and posterior instrumental fusion day 2 -fever this morning. -c/w If fluids, pain management, cefazolin q 8h IV -PT 2) HTN -c/w home medications 3) DVT Prophylaxis -SCD
[2017-12-19] MEDS: Enoxaparin 40 mg Syringe SC SCH (17:39)
[2017-12-20] MEDS: ceFAZolin 2 GM in Sodium Chloride 0.9% 100 ML IVPB SCH ×2 (01:48→09:24)
[2017-12-20] MEDS: Oxycodone/Acetaminophen 5/325 mg Tab PO PRN (06:24)
[2017-12-20 06:39] LABS: HEMOGLOBIN 11.3 g/dL (12.0-18.0); MEAN CELL VOLUME 88.3 fl (80.0-94.0); MEAN CORPUSCULAR HEMOGLOBIN 29.9 pg (27.0-31.0); MEAN CORPUSCULAR HGB CONC 33.9 g/dL (33.0-37.0); RBC 3.78 Mil/uL (4.40-5.90); WHITE BLOOD COUNT 11.6 K/uL (4.8-10.8)
[2017-12-20 06:56] LABS: BLOOD UREA NITROGEN 10 mg/dl (9-20); CALCIUM 8.9 mg/dL (8.4-10.2); GFR AFRICAN-AMERICAN > 60; GFR NON-AFRICAN AMERICAN > 60
[2017-12-20 08:03] VITALS: RESP 20
[2017-12-20] MEDS: Enoxaparin 40 mg Syringe SC SCH (09:25)
[2017-12-20] MEDS ORDERED: Povidone Iodine Topical 10% Sol ONE (10:39)
[2017-12-20 12:21] VITALS: BP 134/87; PULSE 102; TEMP 97.9; O2SAT 98
== END 2017-12-20 13:15 | disposition home or self-care (01) | DRG 460 ==
LOC: H.OPSURG 06:08 → H.TEL 09:59
PROVIDERS: ADMIT Family Medicine; ATTEND Family Medicine
PROC: 0SG10K1 Fusion of 2 or more Lumbar Vertebral Joints with Nonautologous Tissue Substitute, Posterior Approach, Posterior Column, Open Approach (ICD-10-PCS; principal; 2017-12-17 07:45)
DX: M47.816 Spondylosis without myelopathy or radiculopathy, lumbar region (principal); G89.29 Other chronic pain; I10 Essential (primary) hypertension; M19.90 Unspecified osteoarthritis, unspecified site; K59.00 Constipation, unspecified; M51.26 Other intervertebral disc displacement, lumbar region

== ENCOUNTER 2017-12-26 09:20 | Emergency (ER) | payer MEDICARE ==
[2017-12-26 09:27] VITALS: BMI 32.9
[2017-12-26 09:28] VITALS: TEMP 98
[2017-12-26] MEDS ORDERED: Oxycodone/Acetaminophen 5/325 mg Tab PO STA (10:26)
[2017-12-26] MEDS ORDERED: Oxycodone/Acetaminophen 5/325 mg Tab ONE (10:38)
--- NOTE | 2017-12-26 11:22 | ED PDOC ---
HPI: Back Time Seen by Provider: 12/26/17 09:49 Chief Complaint (Nursing): Back Pain Chief Complaint (Provider): Low back pain, surgery 12/17/17 History Per: Patient History/Exam Limitations: no limitations Onset/Duration Of Symptoms: Days Current Symptoms Are (Timing): Still Present Full Body Front + Back: 1 - Pain Severity: Severe Pain Scale Rating Of: 10 Previous Symptoms: Chronic Pain Additional Complaint(s): 52 yo male presents with lower back pain. PT had surgery with Dr. Calderon on . Pt states the pain continues. Pt also reports some bleeding from the incision site. Pt states he has been unable to follow-up with Dr. Calderon. Pt reports taking Rx of tramadol at home but states it is not helping his pain. Past Medical History Vital Signs: Last Vital Signs Temp 98 F 12/26/17 09:27 Pulse 79 12/26/17 09:27 Resp 17 12/26/17 09:27 BP 140/90 12/26/17 09:27 Pulse Ox 99 12/26/17 09:27 - Medical History PMH: Arthritis, HTN Denies: Chronic Kidney Disease - Surgical History Surgical History: Back Surgery (12/17/17) - Family History Family History: States: Unknown Family Hx, Hypertension - Living Arrangements Living Arrangements: With Family - Social History Current smoker - smoking cessation education provided: No - Immunization History Hx Tetanus Toxoid Vaccination: No Hx Influenza Vaccination: No Hx Pneumococcal Vaccination: No - Home Medications Home Medications: Ambulatory Orders Medication Instructions Recorded Metoprolol Tartrate [Lopressor] 50 mg PO DAILY 10/16/17 Valsartan [Diovan] 160 mg PO DAILY 12/12/17 Ibuprofen [Motrin Tab] 600 mg PO Q8 PRN tab 12/20/17 oxyCODONE/Acetaminophen [Percocet 1 ea PO Q6H PRN #15 tab 12/26/17 5/325 mg Tab] - Allergies Allergies/Adverse Reactions: Allergies Allergy/AdvReac Type Severity Reaction Status Date / Time No Known Allergies Allergy Verified 12/26/17 09:33 Review of Systems ROS Statement: Except As Marked, All Systems Reviewed And Found Negative Constitutional: Negative for: Fever, Chills Musculoskeletal: Positive for: Back Pain Physical Exam - Reviewed Nursing Documentation Reviewed: Yes Vital Signs Reviewed: Yes - Physical Exam Appears: Positive for: Well, Non-toxic, No Acute Distress Head Exam: Positive for: ATRAUMATIC, NORMAL INSPECTION, NORMOCEPHALIC Skin: Positive for: Normal Color, Warm, DRY Eye Exam: Positive for: Normal appearance ENT: Positive for: Normal ENT Inspection Neck: Positive for: Normal, Painless ROM Cardiovascular/Chest: Positive for: Regular Rate, Rhythm Respiratory: Positive for: Normal Breath Sounds. Negative for: Accessory Muscle Use, Respiratory Distress Back: Positive for: Normal Inspection, Vertebral Tenderness, Other (Well- healing linear incision, 1mm area with slow bleeding. No surrounding erythem. No drainage. ) Extremity: Positive for: Normal ROM Neurologic/Psych: Positive for: Alert, Oriented - ECG O2 Sat by Pulse Oximetry: 99 Pulse Ox Interpretation: Normal Medical Decision Making Medical Decision Making: Discussed with Dr. Calderon. States to give patient medications for pain and have him follow-up with Dr. Littlejohn. Change dressing twice a day. Disposition - Clinical Impression Clinical Impression: Back pain - Patient ED Disposition Is Patient to be Admitted: No - Disposition Disposition: Routine/Home Disposition Time: 11:24 Condition: STABLE Prescriptions: oxyCODONE/Acetaminophen [Percocet 5/325 mg Tab] 1 ea PO Q6H PRN #15 tab PRN Reason: Pain, Severe (8-10) Instructions: Low Back Pain in Adults
[2017-12-26 11:49] VITALS: BP 134/84; PULSE 82; RESP 16; O2SAT 98
== END 2017-12-26 11:50 | disposition home or self-care (01) ==
LOC: H.ER 09:20
DX: M54.5 Low back pain (principal); G89.29 Other chronic pain; I10 Essential (primary) hypertension

== ENCOUNTER 2018-05-08 09:35 | Day surgery (SDC) | payer MEDICARE ==
[2018-05-06 09:06] VITALS: BMI 31.8
[2018-05-08 10:26] VITALS: RESP 18
[2018-05-08] MEDS ORDERED: MethylPREDNISolone Depo 40 mg/ml Inj ONE (11:15)
[2018-05-08] MEDS ORDERED: Iohexol 300 10 ML ONE (11:15)
[2018-05-08] MEDS ORDERED: Lactated Ringer's 1,000 ML IV ONE (11:30)
[2018-05-08] MEDS ORDERED: Iohexol 300 10 ML IJ ONE (11:35)
[2018-05-08] MEDS ORDERED: Bupivacaine HCl 0.25% PF (30 ml) Inj IJ ONE (11:35)
[2018-05-08] MEDS ORDERED: Lidocaine 2% MPF (5 ml) Inj INJ ONE (11:35)
[2018-05-08] MEDS ORDERED: MethylPREDNISolone Depo 40 mg/ml Inj IM ONE (11:35)
[2018-05-08] MEDS ORDERED: Lactated Ringer's 1,000 ML IV SCH (12:15)
[2018-05-08 12:52] VITALS: BP 129/87; PULSE 82; TEMP 98.1; O2SAT 98
--- NOTE | 2018-05-08 21:30 | OP ---
PROCEDURE DATE: 05/08/2018 PREOPERATIVE DIAGNOSIS: Failed back syndrome. POSTOPERATIVE DIAGNOSIS: Failed back syndrome. PROCEDURE: Bilateral L4 and L5 medial branch nerve block and bilateral sacroiliac joint steroid injection. ANESTHESIOLOGIST: SURGEON: Salma Helton MD ANESTHESIA TYPE: Monitored anesthesia care. COMPLICATIONS: None. SPECIMENS: None. DESCRIPTION OF PROCEDURE: As follows: After we had a discussion of the procedure with the patient including its risks, benefits, alternatives, outcome data, and possibility of no effect or increased pain, the patient consented to the procedure. He denies any recent infection, bleeding tendencies, or being on anticoagulants. A decision was then made to proceed to the OR. The patient was placed on the fluoroscopy table in a prone position with two pillows underneath his abdomen. The back was prepped and draped in the usual sterile fashion and sterile technique was adhered to during the entire procedure. The L4 and L5 medial branch nerves were located at the intersection of the superior articular process and transverse process of the L5 pedicle along with the sacral ala. The procedure was first performed on the right side by turning the fluoroscopy towards the right at approximately 15 degrees. The skin overlying the two above target areas was then infiltrated with 1% lidocaine using 25-gauge needle. Subsequently, a 22-gauge 3.5-inch spinal needle was incrementally advanced under fluoroscopic guidance until tip of the needle made bony contact with both targets. After appropriate placement of both needles, approximately 3 mL of 0.25% Marcaine and Depo-Medrol mixture was injected. The needle was then removed and the same exact procedure was performed on the contralateral left side. Then, bilateral sacroiliac joint was visualized on the anteroposterior view. The targets are at the inferior pole of the posterior opening of the sacroiliac joint. The skin overlying both targets was then infiltrated with 1% lidocaine using 25-gauge needle. Subsequently, a 22-gauge 3.5-inch spinal needle was incrementally advanced under fluoroscopic guidance until tip of the needle walked into the joint capsule. This was confirmed by injecting approximately 0.5 mL of contrast. After appropriate placement of both needles, approximately 3 mL of 0.25% Marcaine and Depo-Medrol mixture was injected. At the end of the case, the patient's back was cleaned and dry bandages were applied. The patient was then transported to recovery area in good condition without any signs of [employer]IST[employer]ICAL [employer]OLOGY toxicity or any neurological deficits. He will be following in the office in approximately two to four weeks. En-Salvador Helton MD
--- NOTE | 2018-05-10 12:12 | RAD ---
Date of service: 05/08/2018 PROCEDURE: Intraoperative Fluoroscopy. HISTORY: PAIN MANAGEMENT FINDINGS: Fluoroscopic assistance was provided for epidural steroid injection. Please refer to the operative report from JOAN Clifton. Total fluoroscopic time (continuous mode) utilized during the procedure 40.4 (seconds). Total exam DLP: 12.97 (mGy).
== END 2018-05-08 13:15 | disposition home or self-care (01) ==
LOC: H.OPSURG 09:35
PROVIDERS: ATTEND Anesthesiology
DX: M96.1 Postlaminectomy syndrome, not elsewhere classified (principal); I10 Essential (primary) hypertension
CPT/HCPCS: 27096; J1030; J2250; J3010; J7120; Q9967

== ENCOUNTER 2018-10-08 10:51 | Emergency (ER) | payer MEDICARE ==
[2018-10-08 10:52] VITALS: BMI 31.8
[2018-10-08 11:47] VITALS: BP 155/99; PULSE 83; RESP 16; TEMP 98.3; O2SAT 95
--- NOTE | 2018-10-08 12:36 | ED PDOC ---
HPI: Eye Injury/Pain Time Seen by Provider: 10/08/18 12:07 Chief Complaint (Nursing): Eye Problem Chief Complaint (Provider): Bilateral Eye Redness History Per: Patient History/Exam Limitations: no limitations Onset/Duration Of Symptoms: Days (x1 month) Current Symptoms Are (Timing): Still Present Additional Complaint(s): 53 year old male presents to the ED for evaluation of bilateral eye redness for the past month associated with discharge upon waking up. Initially, he reports symptoms were on the right eye, and since moved to the left eye as well. He states he saw Dr. Littlejohn at onset who prescribed Tobradex with no relief, so he made a subsequent appointment with Dr. Denton, manual training teacher, but it is not until 10/21. Otherwise, denies eye pain, rash, fever, chills, headache, and trauma. PMD: Luis Littlejohn Past Medical History Reviewed: Historical Data, Nursing Documentation, Vital Signs Vital Signs: Last Vital Signs Temp 98.3 F 10/08/18 11:45 Pulse 83 10/08/18 11:45 Resp 16 10/08/18 11:45 BP 155/99 H 10/08/18 11:45 Pulse Ox 95 10/08/18 11:45 - Medical History PMH: Arthritis, HTN Denies: Chronic Kidney Disease - Surgical History Surgical History: Back Surgery (12/17/17) Other surgeries: THROAT BX fusion back/rods--december 2017; throat arthroscopy - Family History Family History: States: Hypertension - Social History Current smoker - smoking cessation education provided: No Alcohol: None Drugs: Denies - Immunization History Hx Tetanus Toxoid Vaccination: No Hx Influenza Vaccination: No Hx Pneumococcal Vaccination: No - Home Medications Home Medications: Ambulatory Orders Medication Instructions Recorded Metoprolol Tartrate [Lopressor] 50 mg PO DAILY 10/16/17 Ibuprofen [Motrin Tab] 600 mg PO Q8 PRN tab 12/20/17 Losartan [Cozaar] 25 mg PO BID 05/08/18 Ciprofloxacin 0.3% [Ciloxan 0.3% 1 - 2 drop BOTHEYES Q4 #1 bottle 10/08/18 Ophth SOLN] - Allergies Allergies/Adverse Reactions: Allergies Allergy/AdvReac Type Severity Reaction Status Date / Time No Known Allergies Allergy Verified 10/08/18 11:44 Review of Systems ROS Statement: Except As Marked, All Systems Reviewed And Found Negative Constitutional: Negative for: Fever, Chills Eyes: Positive for: Redness (with discharge bilaterally). Negative for: Pain Skin: Negative for: Rash Neurological: Negative for: Headache Physical Exam - Reviewed Nursing Documentation Reviewed: Yes Vital Signs Reviewed: Yes - Physical Exam Appears: Positive for: No Acute Distress Skin: Positive for: Normal Color, Warm, Dry. Negative for: Rash Eye Exam: Positive for: EOMI (and painless), PERRL, Conjunctival injection (with clear discharge noted bilaterally), Other (both globes not firm). Negative for: Periorbital swelling, Periorbital tenderness Neurologic/Psych: Positive for: Alert, Oriented (x3). Negative for: Aphasia, Facial Droop - ECG O2 Sat by Pulse Oximetry: 95 (RA) Pulse Ox Interpretation: Normal Medical Decision Making Medical Decision Making: Time: 1220 Initial Impression: conjunctivitis Initial Plan: --Patient instructed to follow up with Dr. Denton as previously scheduled without fail. Patient also to be given script for Ciloxan upon discharge. All questions answered and patient verbalized agreement with discharge plans. Scribe Attestation: Documented by Zina Kruger, acting as a scribe for Jose Connre PA-C. Provider Scribe Attestation: All medical record entries made by the Scribe were at my direction and personally dictated by me. I have reviewed the chart and agree that the record accurately reflects my personal performance of the history, physical exam, medical decision making, and the department course for this patient. I have also personally directed, reviewed, and agree with the discharge instructions and disposition. Disposition - Clinical Impression Clinical Impression: Conjunctivitis Counseled Patient/Family Regarding: Need For Followup, Rx Given - Disposition Disposition: Routine/Home Disposition Time: 12:25 Condition: STABLE Additional Instructions: FOLLOW UP WITH DR. DENTON PREVIOUSLY SCHEDULED WITHOUT FAIL RETURN TO ED IMMEDIATELY IF SYMPTOMS WORSEN BEENA HUBER, thank you for letting us take care of you today. Your provider was Travis Mathew MD and you were treated for RT EYE PAIN. The emergency medical care you received today was directed at your acute symptoms. If you were prescribed any medication, please fill it and take as directed. It may take several days for your symptoms to resolve. Return to the Emergency Department if your symptoms worsen, do not improve, or if you have any other problems. Please contact your doctor or call one of the physicians/clinics you have been referred to that are listed on the Patient Visit Information form that is included in your discharge packet. Bring any paperwork you were given at discharge with you along with any medications you are taking to your follow up visit. Our treatment cannot replace ongoing medical care by a primary care provider outside of the emergency department. Thank you for allowing the [facility] team to be part of your care today. If you had an X-Ray or CT scan: A Radiologist will review the ED reading if any change in treatment is needed we will contact you. If you had a blood, urine, or wound culture: It will take several days for the results, if any change in treatment is needed we will contact you. If you had an STI test: It will take 48 hours for the results. Please call after 1 week if you have not heard back. Prescriptions: Ciprofloxacin 0.3% [Ciloxan 0.3% Ophth SOLN] 1 - 2 drop BOTHEYES Q4 #1 bottle Instructions: Conjunctivitis ([place]) (DC) Forms: QA on Request ([place]) Print Language: URDU
== END 2018-10-08 12:33 | disposition home or self-care (01) ==
LOC: H.ER 10:51
DX: H10.9 Unspecified conjunctivitis (principal); I10 Essential (primary) hypertension